=== PATIENT | female | born 1995 | race Caucasian/White ===

== ENCOUNTER 2016-12-06 17:21 | Emergency (ER) | payer SELFPAY ==
[~2016-12-06] VITALS: Ht 160 cm; Wt 71.4 kg
[2016-12-06 17:24] VITALS: BP 131/89
[2016-12-06] MEDS ORDERED: ALBUTEROL SULFATE 2.5 MG/3 ML NPPB ONE (18:00)
[2016-12-06] MEDS ORDERED: ALBUTEROL SULFATE 2.5 MG/3 ML ONE (18:02)
== END 2016-12-06 20:10 | disposition home or self-care (01) ==
LOC: ED 19:30
DX: J20.8 Acute bronchitis due to other specified organisms (principal); J05.10 Acute epiglottitis without obstruction; H66.001 Acute suppurative otitis media without spontaneous rupture of ear drum, right ear; B97.89 Other viral agents as the cause of diseases classified elsewhere; F17.200 Nicotine dependence, unspecified, uncomplicated
CPT/HCPCS: 71020; 94640; 99284; J7613